=== PATIENT | female | born 1955 | race Caucasian/White ===

== ENCOUNTER 2016-08-25 22:23 | Emergency (ER) | payer OTHER ==
[2016-08-25 22:28] VITALS: BP 99/59
[2016-08-25] MEDS ORDERED: Ondansetron INJ* 2 MG/ML VIAL IV ONE (23:23)
--- NOTE | 2016-08-25 23:29 | ED ---
Lower Extremity - HPI Summary HPI Summary: Patient ZOË to ED with CC of right leg pain x 1 day which has been worsening. Pain is 10/10, stabbing and does not radiate. The pain is diffuse through the calf, the anterior lower leg, the medial knee and the lateral anterior and posterior upper leg. She states she has had pain in the leg in the past after overuse, but states that pain is more muscular. She notes this pain is different. She takes no medications, but took a pain medication prior to arrival which did not alleviate the pain. Morphine given in ambulance with minimal relief of pain. She is tender to the touch throughout the leg without erythema. Slight swelling in the lower right leg comparatively. 2 hours ago she notes to nausea, diaphoresis and lightheadedness. She continues to be nauseous now. Denies cardiac history. Denies HTN or CAD. - History of Current Complaint Chief Complaint: EDExtremityLower Stated Complaint: RT LEG PAIN Time Seen by Provider: 08/25/16 22:35 Hx Obtained From: Patient Onset of Pain: Immediate Onset/Duration: Hours Severity Initially: Severe Severity Currently: Severe Pain Intensity: 10 Pain Scale Used: 0-10 Numeric Timing: Constant Location: Is Discrete @ - right leg Character Of Pain: Aching Associated Signs And Symptoms: Positive: Swelling, Knee Pain Aggravating Factor(s): Standing, Ambulation, Movement, Weight Bearing Alleviating Factor(s): Nothing Able to Bear Weight: No - Risk Factors Gout Risk Factors: Age Over 40 DVT Risk Factors: Negative Septic Arthritis Risk Factor: Negative - Allergies/Home Medications Allergies/Adverse Reactions: Allergies Allergy/AdvReac Type Severity Reaction Status Date / Time Nalbuphine [From Nubain] Allergy Nausea Verified 09/24/15 08:36 PMH/Surg Hx/FS Hx/Imm Hx Previously Healthy: Yes Endocrine/Hematology History: Denies: Hx Diabetes Cardiovascular History: Denies: Hx Congestive Heart Failure, Hx Hypertension History: Denies: Hx Renal Disease Sensory History: Reports: Hx Contacts or Glasses - GLASSES Denies: Hx Hearing Aid Opthamlomology History: Reports: Hx Contacts or Glasses - GLASSES - Surgical History Surgery Procedure, Year, and Place: HERNIA REPAIR-10 + YEARS AGO- [facility]. TOTAL [id number]-71+YEARS AGO. COLONOSCOPY Hx Anesthesia Reactions: No - Immunization History Date of Tetanus Vaccine: up to date Hx Pertussis Vaccination: No Immunizations Up to Date: Unable to Obtain/Confirm Infectious Disease History: No Infectious Disease History: Denies: Traveled Outside the [place] in Last 30 Days - Social History Occupation: Employed Full-time Lives: With Family Alcohol Use: Occasionally Hx Substance Use: No Substance Use Type: Reports: None Hx Tobacco Use: No Smoking Status (MU): Never Smoked Tobacco Review of Systems Constitutional: Negative Eyes: Negative Cardiovascular: Negative Respiratory: Negative Positive: Nausea Positive: no symptoms reported, see HPI Positive: Myalgia Skin: Negative Positive: Weakness Psychological: Normal All Other Systems Reviewed And Are Negative: Yes Physical Exam Triage Information Reviewed: Yes Vital Signs On Initial Exam: Initial Vitals Temp Pulse Resp BP Pulse Ox 98.6 F 75 16 99/59 98 08/25/16 22:24 08/25/16 22:24 08/25/16 22:24 08/25/16 22:24 08/25/16 22:24 Vital Signs Reviewed: Yes Appearance: Positive: Well-Appearing, Well-Nourished Skin: Positive: Warm, Skin Color Reflects Adequate Perfusion Eyes: Positive: Normal, GWEN ENT: Positive: Normal ENT inspection, Hearing grossly normal Neck: Positive: Supple, Nontender Respiratory/Lung Sounds: Positive: Clear to Auscultation, Breath Sounds Present Cardiovascular: Positive: RRR Abdomen Description: Positive: Nontender, Soft Musculoskeletal: Positive: Pain @ - diffusely throughout the right lower leg with slight edema Neurological: Positive: Sensory/Motor Intact, Alert, Oriented to Person Place, Time, Speech Normal Psychiatric: Positive: Normal - [place] Coma Scale Coma Scale Total: 15 Diagnostics - Vital Signs Vital Signs Temp Pulse Resp BP Pulse Ox 08/25/16 23:02 98.6 F 75 17 99/59 99 08/25/16 22:24 98.6 F 75 16 99/59 98 - Laboratory Result Diagrams: 08/26/16 00:01 08/26/16 00:01 Lab Statement: Any lab studies that have been ordered have been reviewed, and results considered in the medical decision making process. Lower Extremity Course/Dx - Course Course Of Treatment: Slight edema and 10/10 stabbing pain throughout the right leg x 1 day which has been worsening. No erythema or warmth noted. Denies health problems, visual symptoms or hx of CAD. She is nauseous and was diaphoretic prior to arrival. Received morphine in route with little effect. Morphine after arrival with moderate effect. US negative for DVT. Patient still feeling slight pain and slight nausea. LABS WNL. Encouraged follow up with PCP and educated about different possibilities of pain. Likely not electroyte metabolic imbalance. D/t more frequent walking, could be a tendonitis/overuse injury. Complex regional pain syndrome possible, but denies previous injury to the leg. Will give zofran and pain medication. Patient made aware of plan and is OK with discharge. Patient will follow up with PCP and return if symptoms become worse. Return precautions given, medications and side effects reviewed. - Diagnoses Differential Diagnosis/HQI/PQRI: Positive: Fracture (Closed), Fracture (Open), Infection, Sprain, Strain, Tendonitis Provider Diagnoses: Acute leg pain Discharge - Discharge Plan Condition: Stable Disposition: HOME Prescriptions: Ondansetron ODT TAB* [Zofran 4 MG Odt TAB*] 4 mg PO Q6H PRN #12 tab.odt MDD 4 PRN Reason: Nausea oxyCODONE/Acetamin 10/325(NF) [Percocet 10/325 (NF)] 1 tab PO Q6H #12 tab MDD 4 Patient Education Materials: Muscle Spasm (ED) Referrals: Stacy Farah MD [Primary Care Provider] - Additional Instructions: Follow up with PCP EMILY. Call Sunday. For discomfort, Ibuprofen 600mg three times daily If symptoms are not improved with ibuprofen, you make take percoset. Zofran as needed for nausea.
[2016-08-26] MEDS ORDERED: Morphine INJ* 2 MG/ML 1 ML SYRINGE IV ONE (00:06)
[2016-08-26 00:12] LABS: Hematocrit 38 % (35-47); Hemoglobin 12.7 g/dl (12.0-16.0); Mean Corpuscular HGB Conc 33 g/dl (31-36); Mean Corpuscular Hemoglobin 30 pg (27-31); Mean Corpuscular Volume 90 fL (80-97); Mean Platelet Volume 11 um3 (7.4-10.4); Red Blood Count 4.28 10^6/ul (4.0-5.4); Red Cell Distribution Width 13 % (10.5-15); White Blood Count 10.4 10^3/ul (3.5-10.8)
[2016-08-26 00:40] LABS: Albumin 3.9 g/dL (3.2-5.2); BUN/Creatinine Ratio 23.9 (8-20); C Reactive Protein 12.02 mg/L (< 5.00); Calcium 9.1 mg/dL (8.6-10.3); EGFR African American 84.9 (>60); Globulin 3.1 g/dL (2-4); Total Bilirubin 0.7 mg/dL (0.2-1.0)
[2016-08-26 00:41] LABS: Potassium 4.2 mmol/L (3.5-5.0)
[2016-08-26] MEDS ORDERED: Ondansetron ODT TAB* 4 MG SL ONE ×2 (00:48→00:49)
[2016-08-26] MEDS ORDERED: HYDROcodone/ACETAMIN 5-325 MG* 1 TAB PO ONE (00:49)
--- NOTE | 2016-08-26 09:32 | RAD ---
HISTORY: Right calf pain TECHNIQUE: Multiple transverse and longitudinal ultrasound images were obtained of the veins of the right lower extremity using grayscale, color Doppler, and spectral Doppler imaging with and without compression and with augmentation. FINDINGS: VEINS: The common femoral vein, deep femoral vein, femoral vein and popliteal vein are compressible throughout their course, with normal flow on color Doppler imaging and normal response to augmentation on spectral Doppler imaging. SOFT TISSUES: Grossly normal. No large popliteal fossa cyst was identified. IMPRESSION: No sonographic evidence of deep vein thrombosis.
== END 2016-08-26 01:45 | disposition home or self-care (01) ==
LOC: ED 22:23
DX: M79.661 Pain in right lower leg (principal); R60.0 Localized edema
CPT/HCPCS: 36415; 80053; 85025; 86140; 96374; 96375; 99282; A9270-GY; J2270; J2405